=== PATIENT | male | born 1955 | race Two or more races ===

== ENCOUNTER → 2017-07-11 | Outpatient (CLI) | payer OTHER | END | disposition home or self-care (01) | LOC: RAD 10:02 | PROVIDERS: ATTEND Family Medicine Adult Medicine | DX: K76.9 Liver disease, unspecified (principal) | CPT/HCPCS: 76700 ==

== ENCOUNTER 2017-11-10 05:56 | Day surgery (SDC) | payer OTHER ==
[~2017-11-10] VITALS: Ht 167.6 cm; Wt 82.6 kg
[2017-11-10] MEDS ORDERED: AMLODIPINE PO (07:07)
[2017-11-10] MEDS ORDERED: ALBUTEROL INH (07:07)
[2017-11-10 07:08] VITALS: BP 158/96
[2017-11-10 07:29] LABS: INTERNATIONAL NORMALIZED RATIO 1.16 (0.93-1.1)
[2017-11-10] MEDS ORDERED: LIDOCAINE 1%, 20ML ONE (07:46)
[2017-11-10] MEDS ORDERED: MIDAZOLAM 1 MG/ML, 2ML ONE (07:52)
[2017-11-10] MEDS ORDERED: FENTANYL PF 100 MCG/2ML ONE ×2 (07:52)
[2017-11-10] MEDS ORDERED: NALOXONE 1 MG/ML, 2ML ONE (07:53)
[2017-11-10] MEDS ORDERED: FLUMAZENIL 0.1 MG/1 ML, 5ML ONE (07:53)
== END 2017-11-10 09:35 ==
LOC: OUT 05:56
PROVIDERS: ATTEND Family Medicine Adult Medicine
DX: K74.60 Unspecified cirrhosis of liver (principal); B18.2 Chronic viral hepatitis C
CPT/HCPCS: 36415; 47000; 76942; 85610; 88307; 88313; 99156; 99157; J2250; J3010; J3490; J2310